=== PATIENT | female | born 1975 | race Caucasian/White ===

== ENCOUNTER 2016-05-20 | Emergency (ER) | payer BC ==
[2016-05-20 16:43] LABS: HEMOGLOBIN 14.7 gm/dl (12.3-15.3); RED BLOOD COUNT 4.65 M/UL (4.00-5.10); WHITE BLOOD COUNT 8.9 K/UL (4.5-11.0)
[2016-05-20 17:12] LABS: BUN/CREATININE RATIO 10 (0-10)
== END 2016-05-20 18:00 | disposition home or self-care (01) ==
PROVIDERS: Physician Assistant
DX: R10.30 Lower abdominal pain, unspecified (principal); R11.2 Nausea with vomiting, unspecified; R19.7 Diarrhea, unspecified; Z88.1 Allergy status to other antibiotic agents
CPT/HCPCS: 36415; 80053; 81001; 83690; 84703; 85025; 96374; 96375; 99284; J0500; J2270; J2405; J7050; Q9962

== ENCOUNTER → 2016-08-13 | Outpatient (CLI) | payer BC | LOC: MAMO 13:57 | DX: N60.09 Solitary cyst of unspecified breast (principal) | CPT/HCPCS: 76641-LT; 76641-RT; G0204 ==

== ENCOUNTER → 2016-09-03 | Outpatient (CLI) | payer BC | LOC: MAMO 08:16 | DX: R92.8 Other abnormal and inconclusive findings on diagnostic imaging of breast (principal) | CPT/HCPCS: G0206 ==

== ENCOUNTER → 2016-09-03 | Outpatient (CLI) | payer BC | LOC: KOH-I 10:02 | DX: R59.0 Localized enlarged lymph nodes (principal) | CPT/HCPCS: 70490 ==

== ENCOUNTER 2020-08-11 15:47 | Emergency (ER) | payer OTHER ==
[~2020-08-11 15:47] MED LIST: BUTALB-ACETAMI1 EAC1 PO; KEPPRA500 MG PO; ONDANSETRON ODT4 MG SL
[2020-08-11 16:27] LABS: RED BLOOD COUNT 4.53 M/UL (4.00-5.10); WHITE BLOOD COUNT 10.3 K/UL (4.5-11.0)
[2020-08-11 17:35] LABS: BUN/CREATININE RATIO 7 (0-10)
== END 2020-08-11 18:23 | disposition home or self-care (01) ==
LOC: ER1 15:47
PROVIDERS: Emergency Medicine
DX: G43.909 Migraine, unspecified, not intractable, without status migrainosus (principal)
CPT/HCPCS: 70450; 71045; 80053; 82550; 82553; 83874; 84484; 85025; 85610; 85730; 93005; 96374; 96375; 99285; J1885; J2765; J7030

== ENCOUNTER → 2020-08-22 | Outpatient (CLI) | payer OTHER ==
[2020-08-22 11:50] LABS: CRYPTOCOCCUS NEOFORMANS/GATTII Not Detected (Negative); CYTOMEGALOVIRUS Not Detected (Negative); ENTEROVIRUS Not Detected (Negative); ESCHERICHIA COLI K1 Not Detected (Negative); HAEMOPHILUS INFLUENZAE Not Detected (Negative); HERPES SIMPLEX VIRUS 1 Not Detected (Negative); HERPES SIMPLEX VIRUS 2 Not Detected (Negative); HUMAN HERPESVIRUS 6 Not Detected (Negative); HUMAN PARECHOVIRUS Not Detected (Negative); LISTERIA MONOCYTOGENES Not Detected (Negative); NEISERRIA MENINGITIDIS Not Detected (Negative); STREPTOCOCCUS AGALACTIAE Not Detected (Negative); STREPTOCOCCUS PNEUMONIAE Not Detected (Negative); VARICELLA ZOSTER VIRUS Not Detected (Negative)
[2020-08-22 12:47] LABS: GLUCOSE,CSF 84 mg/dL (50-80); TOTAL PROTEIN,CSF 41 mg/dL (20-45)
[2020-08-22 15:55] LABS: RBC (AUTOMATED) 0 10^6 (0); WBC (AUTOMATED 2 10^3 (0-5)
[2020-08-22 15:56] LABS: RBC (AUTOMATED) 0 10^6 (0); WBC (AUTOMATED 1 10^3 (0-5)
[2020-08-25 17:10] LABS: MYELIN BASIC PROTEIN, CSF 10.1 ng/mL (0.0-3.7)
[2020-08-26 13:15] LABS: CSF IGG INDEX 0.6 (0.0-0.7); IMMUNOGLOBULIN G, QN, SERUM 746 mg/dL (586-1602)
== END ==
LOC: RAD 10:48
PROVIDERS: Psychiatry & Neurology Neurology
DX: G44.59 Other complicated headache syndrome (principal)
CPT/HCPCS: 82040; 82784; 82945; 83873; 83916; 84157; 87015; 87070; 87116; 87205; 87210; 87483; 89051

== ENCOUNTER → 2020-11-10 | Outpatient (CLI) | payer OTHER | LOC: EXRD 15:18 | DX: M79.10 Myalgia, unspecified site (principal); M46.1 Sacroiliitis, not elsewhere classified | CPT/HCPCS: 72202 ==

== ENCOUNTER → 2021-06-11 | Outpatient (CLI) | payer MEDICARE ==
[~2021-06-11] MED LIST changes: +CYMBALTA60 MG PO; +DOCUSATE SODIU250 MG PO; +HYDROCODONE-AC1 EACH PO; +IBUPROFEN600 MG PO; +IMITREX100 MG PO; +MOBIC15 MG PO; +NAPROXEN500 MG PO; +PRILOSEC OTC20 MG PO; +TOPAMAX50 MG PO
[2021-06-11 09:26] LABS: HEMOGLOBIN 15.3 gm/dl (12.3-15.3); RED BLOOD COUNT 4.58 M/UL (4.00-5.10); WHITE BLOOD COUNT 12.4 K/UL (4.5-11.0)
== END ==
LOC: OPSV2 08:46
PROVIDERS: Obstetrics & Gynecology
DX: Z01.818 Encounter for other preprocedural examination (principal); N84.0 Polyp of corpus uteri
CPT/HCPCS: 36415; 81001; 85025; 93005

== ENCOUNTER → 2021-06-15 | Day surgery (SDC) | payer MEDICARE | END | disposition home or self-care (01) | LOC: OR 05:08 | DX: N84.0 Polyp of corpus uteri (principal); N93.9 Abnormal uterine and vaginal bleeding, unspecified; F17.210 Nicotine dependence, cigarettes, uncomplicated; K21.9 Gastro-esophageal reflux disease without esophagitis; F31.9 Bipolar disorder, unspecified; Z79.899 Other long term (current) drug therapy; Z20.822 Contact with and (suspected) exposure to COVID-19 | CPT/HCPCS: 36415; 84702; J1100; J1885; J2001; J2250; J2405; J2704; J3010; J7030; J7120 ==